=== PATIENT | female | born 1970 | race Caucasian/White ===

== ENCOUNTER 2018-02-19 15:12 | Outpatient (CLI) | payer OTHER ==
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
== END 2018-02-19 15:13 | disposition home or self-care (01) ==
LOC: TBSIIMAG 15:12
PROVIDERS: ATTEND Neurological Surgery
DX: S12.9XXA Fracture of neck, unspecified, initial encounter (principal); M47.812 Spondylosis without myelopathy or radiculopathy, cervical region
CPT/HCPCS: 72040

== ENCOUNTER 2018-03-25 16:12 | Outpatient (CLI) | payer OTHER ==
--- NOTE | 2018-03-25 19:09 | RAD ---
CERVICAL SPINE THREE VIEWS: 03/25/18 COMPARISON: 02/19/18 HISTORY: Re-evaluate cervical spine fracture. FINDINGS: Study is performed secondary to a provided history of C1 ring fracture. C1 ring is not well assessed on this examination. There is degenerative change at C3-4 and C4-5 with disc space narrowing and anterior osteophyte forma tion. There is minimal retrolisthesis at C2-3 and C3-4. No prevertebral soft tissue swelling. Open mo uth odontoid view demonstrates a normal appearing dens and C1-2 articulation. IMPRESSION: Stable cervical spine radiographs. POS: [facility]
== END 2018-03-25 16:13 | disposition home or self-care (01) ==
LOC: TBSIIMAG 16:12
PROVIDERS: ATTEND Neurological Surgery
DX: S12.9XXD Fracture of neck, unspecified, subsequent encounter (principal)
CPT/HCPCS: 72040

== ENCOUNTER 2018-04-23 11:21 | Outpatient (CLI) | payer OTHER ==
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
== END 2018-04-23 11:22 | disposition home or self-care (01) ==
LOC: TBSIIMAG 11:21
PROVIDERS: ATTEND Neurological Surgery
DX: S12.9XXA Fracture of neck, unspecified, initial encounter (principal)
CPT/HCPCS: 72040

== ENCOUNTER 2020-08-01 10:27 | Outpatient (CLI) | payer BC | END 2020-08-01 10:28 | disposition home or self-care (01) | LOC: BICMAMMO 10:27 | PROVIDERS: ATTEND Family Medicine | DX: N64.52 Nipple discharge (principal) | CPT/HCPCS: 77066; G0279 ==